=== PATIENT | female | born 1945 | race Caucasian/White ===

== ENCOUNTER 2017-01-20 06:48 | Day surgery (SDC) | payer OTHER ==
[2017-01-20 07:29] VITALS: BMI 46.5
[2017-01-20] MEDS ORDERED: SUCCINYLCHOLINE CHLORIDE 200 MG/10 ML VIAL ONE ×5 (07:43)
[2017-01-20] MEDS ORDERED: PROPOFOL 20 ML ONE ×2 (07:50)
[2017-01-20] MEDS ORDERED: LIDOCAINE HCL/PF 2% SDV 5ML VIAL ONE (07:50)
[2017-01-20 08:28] VITALS: TEMP 97.7
[2017-01-20 09:19] VITALS: BP 122/69; PULSE 61
== END 2017-01-20 09:59 | disposition home or self-care (01) ==
LOC: JASU-ENDO 06:48
PROVIDERS: ATTEND Internal Medicine Gastroenterology
PROC: 0DJ08ZZ Inspection of Upper Intestinal Tract, Via Natural or Artificial Opening Endoscopic (ICD-10-PCS; principal; 2017-01-20 08:00)
DX: K29.70 Gastritis, unspecified, without bleeding (principal); K44.9 Diaphragmatic hernia without obstruction or gangrene; K31.89 Other diseases of stomach and duodenum

== ENCOUNTER 2017-05-30 06:59 | Day surgery (SDC) | payer OTHER ==
[2017-05-29 14:23] VITALS: BMI 48.4
[2017-05-30] MEDS ORDERED: LIDOCAINE HCL/PF 2% SDV 5ML VIAL ONE (07:46)
[2017-05-30] MEDS ORDERED: PROPOFOL 20 ML ONE ×2 (07:46)
[2017-05-30 08:24] VITALS: TEMP 98.2
[2017-05-30 08:50] VITALS: PULSE 60
[2017-05-30 10:48] VITALS: BP 106/85
--- NOTE | 2017-06-02 11:56 | PATH ---
Surgical Pathology Report Patient Name: JESSICA JADE [facility]. Rec. #: [id number] /Age/Gender: 1945 (Age: 71) / F Account: [id number] Location: [facility]-ENDOSCOPY Taken: 05/30/2017 Received: 05/30/2017 Reported: 06/02/2017 Physicians: Raul Jernigan M.D. Specimen(s) Received A: BX 2ND PORTION OF DUODENUM / BULB B: BX ANTRUM C: BX GE JUNCTION Clinical History Rule out Robb's, dysplasia Hiatal hernia, gastritis Final Diagnosis A. DUODENUM, SECOND PORTION AND BULB, BIOPSY: DUODENAL MUCOSA WITH MILD MICHAEL GLAND HYPERPLASIA. NO HISTOLOGIC EVIDENCE OF GLUTEN SENSITIVE ENTEROPATHY (CELIAC SPRUE) IDENTIFIED. B. STOMACH, ANTRUM, BIOPSY: MILD REACTIVE GASTROPATHY. IMMUNOSTAIN FOR H. PYLORI IS NEGATIVE. C. GE JUNCTION, BIOPSY: SQUAMOUS MUCOSA WITH PAPILLOMATOSIS SUGGESTIVE OF REFLUX ESOPHAGITIS. NO INTESTINAL METAPLASIA IDENTIFIED (NO ROBB'S IDENTIFIED). Electronically Signed Ceasar Méndez M.D. Gross Description A. Received in formalin, labeled "biopsy second portion of duodenum/bulb" are 4 [place], irregular portions of soft tissue ranging from 0.3-0.4 cm. in greatest dimension. The specimens are submitted in toto in one cassette. B. Received in formalin, labeled "biopsy antrum" are 4 [place], irregular portions of soft tissue ranging from 0.2-0.3 cm. in greatest dimension. The specimens are submitted in toto in one cassette. C. Received in formalin, labeled "biopsy GE junction" are 4 [place], irregular portions of soft tissue ranging from 0.2-0.7 cm. in greatest dimension. The specimens are submitted in toto in one cassette. DL/05/30/2017 saudi05/30/2017
== END 2017-05-30 09:20 | disposition home or self-care (01) ==
LOC: JASU-ENDO 06:59
PROVIDERS: ATTEND Internal Medicine Gastroenterology
PROC: 0DB68ZX Excision of Stomach, Via Natural or Artificial Opening Endoscopic, Diagnostic (ICD-10-PCS; 2017-05-30)
PROC: 0DB58ZX Excision of Esophagus, Via Natural or Artificial Opening Endoscopic, Diagnostic (ICD-10-PCS; 2017-05-30)
PROC: 0DB98ZX Excision of Duodenum, Via Natural or Artificial Opening Endoscopic, Diagnostic (ICD-10-PCS; principal; 2017-05-30 08:00)
DX: K44.9 Diaphragmatic hernia without obstruction or gangrene (principal); K31.9 Disease of stomach and duodenum, unspecified
CPT/HCPCS: 88305-TC; 88342-TC

== ENCOUNTER 2018-05-01 06:44 | Day surgery (SDC) | payer OTHER ==
[2018-04-30 14:16] VITALS: BMI 47.9
[2018-05-01 07:22] VITALS: TEMP 98.4
[2018-05-01 10:03] VITALS: BP 139/73; PULSE 67
--- NOTE | 2018-05-04 11:20 | PATH ---
Surgical Pathology Report Patient Name: JESSICA JADE [facility]. Rec. #: [id number] /Age/Gender: 1945 (Age: 72) / F Account: [id number] Location: [facility]-ENDOSCOPY Taken: 05/01/2018 Received: 05/01/2018 Reported: 05/04/2018 Physicians: Raul Jernigan M.D. Specimen(s) Received POLYP SIGMOID Clinical History Adenoma surveillance Postoperative diagnosis: Diverticulosis, sigmoid polyp Final Diagnosis SIGMOID COLON, POLYP, BIOPSY: HYPERPLASTIC POLYP. Electronically Signed Saima Adam M.D. Gross Description Received in formalin, labeled "biopsy sigmoid colon polyp" are 2 [place], irregular portions of soft tissue averaging 0.3 cm. in greatest dimension. The specimens are submitted in toto in one cassette. 05/01/201805/01/2018
== END 2018-05-01 10:03 | disposition home or self-care (01) ==
LOC: JASU-ENDO 06:44
PROVIDERS: ATTEND Internal Medicine Gastroenterology
PROC: 0DBN8ZX Excision of Sigmoid Colon, Via Natural or Artificial Opening Endoscopic, Diagnostic (ICD-10-PCS; principal; 2018-05-01 08:00)
DX: Z12.11 Encounter for screening for malignant neoplasm of colon (principal); Z86.010 Personal history of colon polyps; K63.5 Polyp of colon; K57.30 Diverticulosis of large intestine without perforation or abscess without bleeding; K64.8 Other hemorrhoids
CPT/HCPCS: 88305-TC

== ENCOUNTER 2023-07-23 04:02 | Day surgery (SDC) | payer OTHER ==
[2023-07-17 14:48] VITALS: BMI 39.3
[2023-07-23 07:18] VITALS: TEMP 98.6
[2023-07-23 09:18] VITALS: BP 132/77; PULSE 66; RESP 14
== END 2023-07-23 09:45 | disposition home or self-care (01) ==
LOC: JASU-ENDO 04:02
PROVIDERS: ATTEND Internal Medicine Gastroenterology
PROC: 0DBL8ZX Excision of Transverse Colon, Via Natural or Artificial Opening Endoscopic, Diagnostic (ICD-10-PCS; principal; 2023-07-23 08:00)
DX: K64.8 Other hemorrhoids (principal); K63.5 Polyp of colon; K57.30 Diverticulosis of large intestine without perforation or abscess without bleeding; Z86.010 Personal history of colon polyps; Z83.719 Family history of colon polyps, unspecified